=== PATIENT | male | born 1965 | race Two or more races ===

== ENCOUNTER 2017-07-11 10:22 | Emergency (ER) | payer SELFPAY ==
[~2017-07-11] VITALS: Ht 190.5 cm; Wt 109.0 kg
[2017-07-11 12:00] VITALS: BP 151/99
== END 2017-07-11 12:55 | disposition left against medical advice (07) ==
LOC: ER 10:22
DX: G43.909 Migraine, unspecified, not intractable, without status migrainosus (principal); Z53.21 Procedure and treatment not carried out due to patient leaving prior to being seen by health care provider